=== PATIENT | female | born 1995 | race Two or more races ===

== ENCOUNTER 2020-08-18 13:34 | Emergency (ER) | payer MEDICAID ==
[~2020-08-18] VITALS: Ht 172.7 cm; Wt 97.5 kg
[2020-08-18 16:02] VITALS: BP 130/80
[2020-08-18] MEDS ORDERED: KETOROLAC TROMETH 60MG/2ML VIAL IM ONE (16:15)
== END 2020-08-18 18:02 | disposition home or self-care (01) ==
LOC: ER 13:34
DX: S00.83XA Contusion of other part of head, initial encounter (principal); W45.8XXA Other foreign body or object entering through skin, initial encounter; Y93.89 Activity, other specified; Y92.89 Other specified places as the place of occurrence of the external cause; Y99.8 Other external cause status
CPT/HCPCS: 70486; 96372; 99284; J1885